=== PATIENT | male | born 1940 | race Caucasian/White ===

== ENCOUNTER 2021-08-09 08:12 | Outpatient (CLI) | payer MEDICARE, BC | END 2021-08-09 08:13 | disposition home or self-care (01) | LOC: CSHWCC 08:12 | PROVIDERS: ATTEND Nurse Practitioner Family | DX: L89.893 Pressure ulcer of other site, stage 3 (principal); R60.0 Localized edema; I25.10 Atherosclerotic heart disease of native coronary artery without angina pectoris; E78.2 Mixed hyperlipidemia; G60.9 Hereditary and idiopathic neuropathy, unspecified; M25.569 Pain in unspecified knee; Z85.46 Personal history of malignant neoplasm of prostate | CPT/HCPCS: 99212; G0463 ==

== ENCOUNTER 2022-04-04 09:34 | Outpatient (CLI) | payer MEDICARE, BC | END 2022-04-04 09:35 | disposition home or self-care (01) | LOC: CSHWCC 09:34 | PROVIDERS: ATTEND Nurse Practitioner Family | DX: R60.0 Localized edema (principal) | CPT/HCPCS: 11055 ==